=== PATIENT | male | born 1965 | race Caucasian/White ===

== ENCOUNTER 2020-05-28 17:33 | Outpatient (CLI) | payer BC, SELFPAY ==
--- NOTE | ~2020-05-28 | CT_ITS ---
EXAMINATION: CT brain wo con INDICATION: Cerebral infarction unspecified, visual disturbance, cavernous hemangioma, headache COMPARISON: None TECHNIQUE: Standard unenhanced head CT. The dose-length product (DLP) was 605.33 mGy-cm. The mA was a djusted according to patient size. Iterative reconstruction technique was employed. FINDINGS: There is a 10 mm hyperattenuating area in the left denney radiata. No significant surroundi ng vasogenic edema is identified. No definite mass is seen. The ventricles are normal. There is no ab normal mass effect or midline shift. The johnson-white matter differentiation is normal. The basal ciste rns are patent. The orbits are normal. The paranasal sinuses, mastoids and calvarium are normal. IMPRESSION: 1. 10 mm hyperattenuating focus the left denney radiata likely reflecting the patient's known caverno ma. This case was discussed with Dr. Fried who saw the patient in the office today. Patient report leena has a history of cavernoma on the left (he showed Dr. Fried a picture of the lesion from an M [facility] on his phone). No definite acute findings are identified however correlation with any prior imagin g would be helpful. Dr. Fried plans for MRI follow-up. Reviewed, dictated and finalized at location A. K OUT HAND IMPRESSION: 1. 10 mm hyperattenuating focus the left denney radiata likely reflecting the p atient's known cavernoma. This case was discussed with Dr. Fried who saw the patient in the office today. Patient reportedly has a history of cavernoma on the left (he showed Dr. Fried a picture of the lesion from an MRI on his darryl ne). No definite acute findings are identified however correlation with any mervat or imaging would be helpful. Dr. Fried plans for MRI follow-up.
== END 2020-05-28 17:34 | disposition home or self-care (01) ==
PROVIDERS: PCP Family Medicine; Visit Provider Family Medicine
DX: I63.9 Cerebral infarction, unspecified (principal); D18.00 Hemangioma unspecified site; H53.9 Unspecified visual disturbance; G44.1 Vascular headache, not elsewhere classified
CPT/HCPCS: 70450

== ENCOUNTER → 2020-06-05 10:24 | Outpatient (CLI) | payer BC, SELFPAY ==
--- NOTE | ~2020-06-05 | MR_ITS ---
EXAMINATION: MR brain/brain stem wo/w con DATE: 06/05/2020 11:30 INDICATION: Cerebral infarction. Headache. Dizziness. TECHNIQUE: Magnetic resonance imaging (MRI) of the brain and brainstem was performed without and with 13 mL MultiHance intravenous contrast. Sequences included sagittal and axial T1-weighted FSE, axial diffusion-weighted FS EPI, axial T2*-weighted GRE, axial T2-weighted FLAIR Propeller, and axial T2-we ighted Propeller. Postcontrast sequences included axial and coronal T1-weighted FSE. Apparent diffusi on coefficient (ADC) maps were created. COMPARISON: Head CT 05/28/2020 FINDINGS: In the posterior left frontal lobe centrum semiovale, there is an 11 mm lesion of increased T2-weighted signal intensity and old blood products. No contrast enhancement. There is no acute isch emic infarct. The ventricles are normal in size. The orbits are normal. There is mucosal thickening i n the paranasal sinuses. The mastoid air cells are normal. IMPRESSION: 1. 11 mm mass in the left frontal lobe centrum semiovale, consistent with a cavernoma. Reviewed, dictated and finalized at location A. IATIVE CARE SPECIALIST IMPRESSION: 1. 11 mm mass in the left frontal lobe centrum semiovale, consistent with a ca vernoma.
[2020-06-05 11:02] LABS: Estimated Glomerular Filt Rate > 60
== END ==
PROVIDERS: PCP Family Medicine; Visit Provider Family Medicine
DX: I63.9 Cerebral infarction, unspecified (principal)
CPT/HCPCS: 70553; A9577